=== PATIENT | male | born 2000 | race Caucasian/White ===

== ENCOUNTER → 2020-04-25 | Day surgery (SDC) | payer OTHER ==
[~2020-04-25] MED LIST: FUROSEMIDE 20 M20 MG PO; NIFEDIPINE ER30 M1 PO; PHOSPHORUS BINDER; RENAPLEX-D TAB1 EACH PO; RENVELA0.8 GM PO; SODIUM BICARBO650 M3 PO
[2020-04-25 14:20] LABS: HEMATOCRIT 40.1 % (42.0-52.0); HEMOGLOBIN 13.5 gm/dL (14.0-18.0); MCH 31.6 pg (26.0-34.0); MCHC 33.6 g/dL (28.0-37.0); RBC 4.27 mil/uL (4.50-6.00); RDW-CV 15.3 % (10.5-14.5); WBC 7.3 thou/uL (4.0-11.0)
[2020-04-25 14:32] LABS: CALCIUM 9.5 mg/dL (8.5-10.1); CREATININE 8.3 mg/dL (0.6-1.3)
[2020-04-25 14:34] LABS: POTASSIUM 6.8 mmol/L (3.5-5.1)
[2020-04-25 15:18] LABS: CALCIUM 9.2 mg/dL (8.5-10.1); CREATININE 8.4 mg/dL (0.6-1.3)
[2020-04-25 15:19] LABS: POTASSIUM 6.4 mmol/L (3.5-5.1)
--- NOTE | 2020-04-25 16:29 | EKG ---
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: : 2000 Requested By: Shiv Arrington Order Number: [id number] Ellie MD: Abisai Medina Measurements Intervals [place] Rate: 64 P: 37 NV: 178 QRS: 108 QRSD: 96 T: 60 QT: 413 QTc: 426 Interpretive Statements Sinus rhythm Consider right ventricular hypertrophy ST elev, probable normal early repol pattern Tall T waves, probably normal variant No previous ECG available for comparison Electronically Signed On 04-25-2020 16:29:19 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
== END | disposition home or self-care (01) ==
LOC: M.SUR 08:17
PROVIDERS: Anesthesiology; ATTEND Surgery
DX: N18.6 End stage renal disease (principal); Z53.8 Procedure and treatment not carried out for other reasons; Z98.890 Other specified postprocedural states; Z20.822 Contact with and (suspected) exposure to COVID-19

== ENCOUNTER → 2020-05-09 | Day surgery (SDC) | payer OTHER ==
[~2020-05-09] MED LIST changes: +NORCO5 PO
--- NOTE | ~2020-05-09 | OP ---
[facility] [address] [place] [address] OPERATIVE REPORT Name: BELGICA YOUNGBLOOD Room: [facility]#: [id number] Admission: 05/09/20 Attend Phys: Shiv Arrington Discharge: Date of : 00 Report #: [id number] THIS REPORT FOR: cc: Thony Sabillon MD, John H. MD ~ Shiv Arrington MD DATE OF SERVICE: 05/09/2020 PREOPERATIVE DIAGNOSIS: End-stage renal disease. POSTOPERATIVE DIAGNOSIS: End-stage renal disease. OPERATION: 1. Laparoscopic placement of tunneled intraperitoneal catheter. 2. Laparoscopic omentopexy. SURGEON: Shiv Arrington MD ANESTHESIA: General. ESTIMATED BLOOD LOSS: Minimal. SPECIMEN: None. DESCRIPTION OF PROCEDURE: After informed consent was obtained, the patient was brought to the operating room and placed supine. SCDs were placed and working, preoperative antibiotics were administered, general anesthesia was induced. The abdomen was prepped and draped in the usual sterile fashion. A 5 mm incision was made in the left upper quadrant. A 5 mm trocar was placed under direct vision. Pneumoperitoneum was established. A left-sided 5 mm trocar was placed. I then grasped the omentum and brought it up to the right upper quadrant and the left upper quadrant. Two 2-0 Vicryl sutures were placed using the suture passer down through the omentum and then back out through the fascia. One of these was placed on each side, performing the omentopexy. I then inserted a 62 cm Covidien catheter. It was placed through a trocar that was placed in the left rectus sheath above the umbilicus. Catheter was then pulled back, so that the internal cuff was in the rectus sheath. I then tunneled it into the left upper quadrant of the abdomen. It flushed very easily with heparinized normal saline and drained easily as well. The ports were removed under direct vision. The skin was closed with 4-0 Monocryl. Incisions were dressed with Steri-Strips. COMPLICATIONS: [place] [address] OPERATIVE REPORT Name: BELGICA YOUNGBLOOD Room: [facility]#: [id number] Admission: 05/09/20 Attend Phys: Shiv Arrington Discharge: Date of : 00 Report #: [id number] DISPOSITION: The patient was taken to recovery in satisfactory condition. By: [id number] Arrington MD /yobani
[2020-05-09 13:14] LABS: HEMATOCRIT 32.2 % (42.0-52.0); HEMOGLOBIN 11.3 gm/dL (14.0-18.0); MCH 31.5 pg (26.0-34.0); MCHC 34.9 g/dL (28.0-37.0); MCV 90.1 fL (80.0-100.0); MPV 7.3 fl. (7.2-11.1); RBC 3.58 mil/uL (4.50-6.00); RDW-CV 14.2 % (10.5-14.5); WBC 4.3 thou/uL (4.0-11.0)
[2020-05-09 13:27] LABS: CREATININE 8.7 mg/dL (0.6-1.3); POTASSIUM 4.8 mmol/L (3.5-5.1)
[2020-05-09 13:36] LABS: ALBUMIN 3.6 g/dL (3.4-5.0); TOTAL BILIRUBIN 0.5 mg/dL (<0.1-1.0); TOTAL PROTEIN 7.1 g/dL (6.4-8.2)
== END | disposition home or self-care (01) ==
LOC: M.SUR 08:46
PROVIDERS: ATTEND Surgery
DX: I12.0 Hypertensive chronic kidney disease with stage 5 chronic kidney disease or end stage renal disease (principal); N18.6 End stage renal disease; Z20.822 Contact with and (suspected) exposure to COVID-19; Z79.899 Other long term (current) drug therapy

== ENCOUNTER → 2020-08-13 | Day surgery (SDC) | payer OTHER ==
[~2020-08-13] MED LIST changes: +AMLODIPINE BESY10 MG PO; +COZAAR 25 MG TA25 M1 PO; +KEPPRA XR500 MG PO; +LABETALOL HCL300 MG PO
--- NOTE | ~2020-08-13 | OP ---
[facility] [address] [place] [address] OPERATIVE REPORT Name: BELGICA YOUNGBLOOD Room: [facility]#: [id number] Admission: 08/13/20 Attend Phys: Shiv Arrington Discharge: Date of : 00 Report #: [id number] THIS REPORT FOR: cc: Thony Sabillon MD, John H. MD Patterson, Jonathan D. MD ~ DOC #: [id number] Shiv Arrington MD DATE OF SURGERY: 08/13/2020 PREOPERATIVE DIAGNOSIS: End-stage renal disease. POSTOPERATIVE DIAGNOSIS: End-stage renal disease. OPERATION: Removal of tunneled intraperitoneal catheter. SURGEON: Dr. Shiv Arrington. ANESTHESIA: General. ESTIMATED BLOOD LOSS: Minimal. SPECIMENS: None. DESCRIPTION OF PROCEDURE: After informed consent was obtained, the patient was brought to the operating room and placed supine. SCDs were placed and working, preoperative antibiotics were administered, general anesthesia was induced. The abdomen was prepped and draped in the usual sterile fashion. I made an elliptical incision around the exit site. Cautery dissection was made down to the external cuff, which was dissected around. A counter incision was made over the internal cuff. Cautery dissection was made down to the fascia and the cuff was freed up from the fascia with cautery. I then closed the fascia with a single 0 Vicryl stitch. Skin was then closed with 4-0 Monocryl. Incisions were dressed with Steri-Strips. COMPLICATIONS: None. DISPOSITION: The patient was taken to recovery in satisfactory condition. MD JAKY Diana/[place] [address] OPERATIVE REPORT Name: BELGICA YOUNGBLOOD Room: [facility]#: [id number] Admission: 08/13/20 Attend Phys: Shiv Arrington Discharge: Date of : 00 Report #: [id number] By: [id number] Arrington MD /nt
[2020-08-13 07:17] LABS: HEMATOCRIT 27.4 % (42.0-52.0); HEMOGLOBIN 9.8 gm/dL (14.0-18.0); MCH 31.7 pg (26.0-34.0); MCHC 35.7 g/dL (28.0-37.0); MCV 88.7 fL (80.0-100.0); MPV 6.3 fl. (7.2-11.1); RBC 3.09 mil/uL (4.50-6.00); WBC 5.6 thou/uL (4.0-11.0)
[2020-08-13 07:30] LABS: CALCIUM 8.7 mg/dL (8.5-10.1); CREATININE 6.9 mg/dL (0.6-1.3); POTASSIUM 4.9 mmol/L (3.5-5.1)
== END | disposition home or self-care (01) ==
LOC: M.SUR 07-30 12:24
PROVIDERS: ATTEND Surgery
DX: I12.0 Hypertensive chronic kidney disease with stage 5 chronic kidney disease or end stage renal disease (principal); N18.6 End stage renal disease; G47.30 Sleep apnea, unspecified; Z98.890 Other specified postprocedural states; Z79.899 Other long term (current) drug therapy